=== PATIENT | male | born 1965 | race African-American/Black ===

== ENCOUNTER 2019-06-17 17:55 | Emergency (ER) | payer OTHER ==
[~2019-06-17] VITALS: Ht 177.8 cm; Wt 79.4 kg
[2019-06-17 18:00] VITALS: BP 116/75
[2019-06-17] MEDS ORDERED: ACETAMINOPHEN500 M1 PO (18:26)
[2019-06-17] MEDS ORDERED: IBUPROFEN 400400 M2 PO (18:26)
== END 2019-06-17 18:38 | disposition home or self-care (01) ==
LOC: ER 17:55 → EDBD 17:55 → ER 18:38
DX: M25.512 Pain in left shoulder (principal); M25.511 Pain in right shoulder; F17.210 Nicotine dependence, cigarettes, uncomplicated

== ENCOUNTER 2019-07-06 14:40 | Emergency (ER) | payer OTHER ==
[~2019-07-06] VITALS: Ht 177.8 cm; Wt 81.7 kg
[2019-07-06 14:40] VITALS: BP 112/80
[~2019-07-06 14:40] MED LIST: ACETAMINOPHEN500 M1 PO; IBUPROFEN 400400 M2 PO
[2019-07-06] MEDS ORDERED: IBUPROFEN 400400 M2 PO (15:08)
== END 2019-07-06 15:09 | disposition home or self-care (01) ==
LOC: ER 14:40
DX: M19.012 Primary osteoarthritis, left shoulder (principal); M19.011 Primary osteoarthritis, right shoulder; F17.210 Nicotine dependence, cigarettes, uncomplicated; Z76.0 Encounter for issue of repeat prescription